=== PATIENT | female | born 1955 | race Caucasian/White ===

== ENCOUNTER → 2022-11-16 | Outpatient (CLI) | payer MEDICARE | LOC: MC.RAD 13:45 | DX: Z12.31 Encounter for screening mammogram for malignant neoplasm of breast (principal); R92.8 Other abnormal and inconclusive findings on diagnostic imaging of breast ==

== ENCOUNTER → 2022-11-24 | Outpatient (CLI) | payer MEDICARE | LOC: MC.RAD 09:10 | DX: N60.02 Solitary cyst of left breast (principal) ==